=== PATIENT | female | born 1960 | race Native Hawaiian/Other Pacific Islander ===

== ENCOUNTER 2017-09-30 12:45 | Outpatient (CLI) | payer OTHER ==
--- NOTE | 2017-09-30 13:51 | XRay Report ---
X-RAY RIGHT WRIST THREE VIEWS: 09/30/17 CLINICAL: Pain. FINDINGS: The examination is taken through a fiberglass cast. Comminuted mildly displaced fracture of the distal radius with slight dorsal angulation at the fracture site. Relatively anatomic alignment in the AP view. Transverse oblique fracture of the distal ulna with mild displacement. The carpal bones appear intact. Normal soft tissues. IMPRESSION: Subacute traumatic mildly displaced fractures of the distal radius and ulna with cast in place.
== END 2017-09-30 12:46 | disposition home or self-care (01) ==
LOC: SPVIMAG 12:45
PROVIDERS: ATTEND Orthopaedic Surgery
DX: S52.501D Unspecified fracture of the lower end of right radius, subsequent encounter for closed fracture with routine healing (principal); X58.XXXD Exposure to other specified factors, subsequent encounter

== ENCOUNTER 2017-10-21 12:43 | Outpatient (CLI) | payer OTHER ==
--- NOTE | 2017-10-21 13:00 | XRay Report ---
Right wrist 3 views: History: Right wrist pain. Findings: There is fracture of the distal radius and ulna. No significant displacement of fracture fragments. Minimal impaction at the site of fracture. The fracture line is approximately 2 cm proximal to the articular surface. Impression: Fracture distal radius and ulna.
== END 2017-10-21 12:44 | disposition home or self-care (01) ==
LOC: SPVIMAG 12:43
PROVIDERS: ATTEND Orthopaedic Surgery
DX: S52.501A Unspecified fracture of the lower end of right radius, initial encounter for closed fracture (principal); S52.601A Unspecified fracture of lower end of right ulna, initial encounter for closed fracture; X58.XXXA Exposure to other specified factors, initial encounter; Y93.89 Activity, other specified; Y92.89 Other specified places as the place of occurrence of the external cause; Y99.8 Other external cause status